=== PATIENT | female | born 1975 | race Caucasian/White ===

== ENCOUNTER 2024-05-25 21:22 | Emergency (ER) | payer BC, SELFPAY ==
[2024-05-25] VITALS (9 sets, daily range): BP systolic 126–167; BP diastolic 83–119; PULSE 105–140; RESP 12–30; O2SAT 95–100
--- NOTE | 2024-05-25 21:30 | RT.EKG_ITS ---
APPROVED REPORT Exam: Resting ECG Reason for Exam: tachycardia Patient Location: E HR:117 bpm ECG Measurements Heart Rate 117 AXIS NE 125 P 82 QRSd 72 QRS 73 QT 332 T 78 QTc 462 Conclusion Sinus tachycardia, rate 117 No interval abnormalities No STEMI No priors available for comparison
[2024-05-25] MEDS: LORazepam 1 MG TAB PO (22:29)
--- NOTE | 2024-05-25 23:05 | ED.GENADUL_ITS ---
<Statement entered by Reji Antonio MD - 05/28/24 11:24> Please see my separate note for details. Discharge Plan Disposition Patient Disposition: Home Condition: Good Discharge Details Clinical Impression: Anxiety, Sinus tachycardia, RLQ abdominal tenderness, Uterine cyst Primary Care Provider: Unknown,Unknown ED Provider: Galo Campbell Home Meds and New Rx's Prescriptions: No Action No Known Home Meds Discharge Instructions Instructions: Appendicitis, Adult (DC) Additional Instructions: At this time you have been evaluated by our surgical colleagues. Currently your symptoms do not appear consistent with a surgical appendicitis. However it is imperative that you monitor your symptoms very closely. Please follow-up with surgery tomorrow which was their request. If you notice any worsening of your symptoms, or any new symptoms such as vomiting, diarrhea, fever, chills, shortness of breath, chest pain, numbness, weakness, or fainting , please return immediately to the emergency department for reevaluation. Please follow up with your primary care provider as soon as possible for reassessment and reevaluation. As always, it was a pleasure participating in your medical care today. Referrals: Renny Everett MD [ [facility] STAFF PHYSICIAN] - Discharge Data Discharge Date/Time-TO BE ENTERED AT DEPARTURE: 05/26/24 19:09 HPI <GREGORY Olmos - Last Filed: 05/26/24 17:16> General Date/Time Provider Initiated Documentation: 05/25/24 21:25 . HPI Narrative: This 48-year-old female presents with history of longstanding alcohol abuse and anxiety presents with report of feeling like she is having a nervous breakdown. Patient states she is supposed to be leaving for a work conference in [facility]. Patient states she supposed to leave tomorrow and has anxiety regarding leaving her home and overwhelming severe anxiety for which she has been hospitalized before in the past. She states that she works during the day predominantly days of the week and at night does consume approximately 1 bottle of wine. She states she is able to go several days without consuming alcohol and denies any history of severe alcohol withdrawal such as seizures. She does state that she has a history of nausea and vomiting and tremulousness when she stops drinking but denies seizures or recent hallucinations. She denies any additional illicit drug use, chance of , chest pain, shortness of breath, abdominal pain. She adamantly denies any suicidal ideation or homicidal ideation. She denies any auditory visual hallucinations. Her last drink was several hours prior to arrival today in the emergency department. She denies any attempts to harm self. She is hoping for inpatient placement for her anxiety as she no longer feels safe at home. Related Data Home Medications ?Medication ?Instructions ?Recorded ?Confirmed Unknown [No Known Home Meds] 05/25/24 05/25/24 Allergies Allergy/AdvReac Type Severity Reaction Status Date / Time coconut Allergy Severe Anaphylaxis Unverified 05/25/24 21:31 General Stated Complaint: OD/Poison NATHAN: 3 Exam <GREGORY Olmos Last Filed: 05/26/24 17:16> Narrative Exam Narrative: Alert, oriented, labile, no respiratory distress, sinus tachycardia, no abdominal tenderness, alert and oriented x 3, no visible signs of trauma, no suicidal ideation, tangential, very anxious Course <GREGORY Olmos Last Filed: 05/26/24 17:16> Vital Signs Vital signs: Vital Signs Pulse 140 H 05/25/24 21:26 Respiratory Rate 30 H 05/25/24 21:26 Blood Pressure 167/119 H 05/25/24 21:26 Pulse Oximetry 100 05/25/24 21:26 Pulse 140 H 05/25/24 21:26 Respiratory Rate 30 H 05/25/24 21:26 Respiratory Effort Normal 05/25/24 21:29 Blood Pressure 167/119 H 05/25/24 21:26 Blood Pressure Position Sitting 05/25/24 21:26 Pulse Oximetry 100 05/25/24 21:26 Oxygen Delivery Method Room Air 05/25/24 21:26 Oxygen Flow Rate 0 05/25/24 21:26 Medical Decision Making <GREGORY Olmos Last Filed: 05/26/24 17:16> 48-year-old female in acute distress, anxious, under the influence of alcohol but no speech slurring fully alert and oriented at time of assessment. Agreeable to having some blood work performed. Patient has not had any healthcare assessments or labs for over 20 years per patient secondary to his severe healthcare anxiety. She is agreeable to lab and line attempt at this time. At this time she is interested in placement she feels like she has lost control of her life and his overwhelmingly anxious to even leave her home. She states that she is interested in becoming sober from alcohol but is unsure as to whether or not she is quite ready at this time. She is more concerned about her anxiety and that is why she is consuming alcohol. She states that she was sober in 2021 after having rehab for all of alcohol. Did discuss that hospitalization for rehabilitation from alcohol is not typically performed in the hospital and that a cane and recovery can assist patient with outpatient resources. Patient desires predominantly mental health evaluation and treatment for severe anxiety. At this time, I will order diagnostic labs for medical screening and patient will need mental health screening assessment/placement at their discretion. She will need prolonged observation for medical clearance in the department at this time for alcohol withdrawal. Patient is placed on CIWA protocol and is not exhibiting any signs of alcohol withdrawal at this time. She is tachycardic but I suspect this is secondary to anxiety. She states she is able to work the entire day before she drinks in the evening. She has had approximately a bottle of wine tonight which is what she typically consumes. Care will be transitioned pending medical clearance and mental health assessment Quality:SDOH Health Related Social Needs: No Data to Display PFSH <GREGORY Olmos - Last Filed: 05/26/24 17:16> All Active Problems (Updated 05/26/24 @ 16:05 by Reji Antonio MD) Uterine cyst (Acute) RLQ abdominal tenderness (Acute) Sinus tachycardia (Acute) Anxiety (Chronic) Social History Smoking risk assessment performed?: No Alcohol Intake: never Drug use: Never Substance use type: does not use Sign Out <GREGORY Olmos - Last Filed: 05/26/24 17:16> Sign Out Data: Sign Out Comment: pending medical clearance, assessment, CIWA Last updated by Palak Grant PA at 05/25/24 23:14 Sign Out Comment: Severe anxiety/agoraphobia. Drinks ~1 bottle of wine/day, no prior ETOH withdrawal. CIWA low overnight. NKHS when awake and sober. Last updated by Dari Rubio MD at 05/26/24 06:56 Sign Out Comment: 48-year-old female pending general surgery consultation at approximately 6 PM in setting of right lower quadrant tenderness and abnormal CT. Please keep patient n.p.o. and avoid further analgesia. Last updated by Reji Antonio MD at 05/26/24 16:06 PAWSS <GREGORY Olmos - Last Filed: 05/26/24 17:16> Have you Been Recently Intoxicated or Drunk Within the Last 30 days?: No Have you Ever Experienced Previous Episodes of Alcohol Withdrawal?: No Have you ever Experienced Withdrawal Seizures?: No Have you ever Experienced Delirium Tremens(DT)s?: No Have you ever undergone Alcohol Rehabilitation Treatment (i.e, inpt ot outpatient treatment programs)?: No Have you ever Experienced Blackouts?: No Have you ever Combined Alcohol with other Downers within the last 90 days?: No Have you ever Combined Alcohol with any other Substance of Abuse during the last 90 days?: No Positive Blood Alcohol level on Presentation? [PCS.BAL]: No Evidence of Increased Autonomic Activity (i.e. HR>120, tremor, sweating, agitation, nausea)?: No Result: 0 <Dari Rubio MD - Last Filed: 05/25/24 23:36> Result: 0 <Reji Antonio MD - Last Filed: 05/27/24 16:18> Result: 0
[2024-05-25 23:18] LABS: Abs Immature Grans 0.03 10^3/uL (0.0-0.06); Absolute Basophil Count 0.11 10^3/uL (0.0-0.2); Absolute Eosinophil Count 0.03 10^3/uL (0.0-0.7); Absolute Lymphocyte Count 2.66 10^3/uL (1.2-3.4); Absolute Monocyte Count 0.67 10^3/uL (0.1-0.8); Absolute Neutrophil Count 5.22 10^3/uL (1.2-6.7); Basophils % 1.3 %; Eosinophils % 0.3 %; HCT 44.2 % (36.0-46.0); HGB 13.8 g/dL (11.2-15.7); Immature Grans % 0.3 %; Lymphocytes % 30.5 %; MCH 23.4 pg (27.0-33.0); MCHC 31.2 % (32.0-36.0); MCV 75 fL (80-95); MPV 8.3 fL (8.0-11.0); Monocytes % 7.7 %; Neutrophils % 59.9 %; Platelet Count 509 10^3/uL (130-400); RBC 5.91 10^6/uL (3.93-5.22); RDW 23.5 % (11.7-14.6); RDW-SD 60.7 fL; WBC 8.72 10^3/uL (4.4-10.8)
[2024-05-25 23:23] LABS: Anisocytosis 1+; Microcytosis 1+
[2024-05-25 23:25] LABS: HCG Qual (Serum) Negative
[2024-05-25 23:32] LABS: ALT 28 U/L (14-59); AST 39 U/L (15-37); Albumin 4.2 g/dL (3.4-5.0); Alkaline Phosphatase 94 U/L (46-116); Anion Gap 21.6 mmol/L (3-11); BUN 4 mg/dL (7-18); Bilirubin, Total 0.38 mg/dL (0.2-1.0); CO2 19.4 mmol/L (21.0-32.0); CREATININE 0.6 mg/dL (0.55-1.02); Chloride 98 mmol/L (98-107); Estimated GFR 109.96 (mL/min/1.73m2); Glucose 83 mg/dL (74-106); Lipase 32 U/L (16-77); Magnesium 1.9 mg/dL (1.8-2.4); Potassium 4.2 mmol/L (3.5-5.1); Sodium 139 mmol/L (136-145); Total Protein 8.6 g/dL (6.4-8.2)
[2024-05-25] MEDS: Nicotine 4 MG GUM CH (23:36)
--- NOTE | 2024-05-25 23:37 | ED.PROG_ITS ---
Date of service: 05/25/24 Time of Service: 23:30 Medical Decision Making This patient was signed out to me. Please see previous notes for H&P and initial eval. In brief, 48yo F with hx of anxiety, agoraphobia, presenting for anxiety and requesting mental health assistance. Drinks one bottle of wine a night, no history of alcohol withdrawal. Given PO ativan prn for anxiety. Signed out pending medical clearance labs and [facility] evaluation. Labs reviewed as below, CBC reassuring with no leukocytosis or anemia, CMP with no actionable abnormalities, TSH high with normal free T4, hcG negative, ETOH 327.6. Will observe in the ED overnight with q2 CIWA while awake, plan for NKHS eval in the morning when awake/sober. Overnight mostly sleeping, scores 2 when awake. Remains tachycardiac mostly 100-120, sinus on the monitor, suspect s/t to ETOH intoxication. Will be signed out to oncoming physician, plan for [facility] eval when sober. Lab Data Lab results reviewed: Yes I reviewed the patient's lab results. Labs: Laboratory Tests Range/Units 05/25/24 05/26/24 23:10 03:45 WBC (4.4-10.8) 10^3/uL 8.72 RBC (3.93-5.22) 10^6/uL 5.91 H Hgb (11.2-15.7) g/dL 13.8 Hct (36.0-46.0) % 44.2 MCV (80-95) fL 75 L MCH (27.0-33.0) pg 23.4 L MCHC (32.0-36.0) % 31.2 L RDW (11.7-14.6) % 23.5 H Plt Count (130-400) 10^3/uL 509 H MPV (8.0-11.0) fL 8.3 Immature Gran % % 0.3 Neutrophils % % 59.9 Lymphocytes % % 30.5 Monocytes % % 7.7 Eosinophils % % 0.3 Basophils % % 1.3 Nucleated RBC % (0.0-0.3) % 0.0 Absolute Neutrophils (1.2-6.7) 10^3/uL 5.22 Absolute Lymphocytes (1.2-3.4) 10^3/uL 2.66 Absolute Monocytes (0.1-0.8) 10^3/uL 0.67 Absolute Eosinophils (0.0-0.7) 10^3/uL 0.03 Absolute Basophils (0.0-0.2) 10^3/uL 0.11 RBC Morphology See Below Anisocytosis 1+ Microcytosis 1+ Sodium (136-145) mmol/L 139 Potassium (3.5-5.1) mmol/L 4.2 Chloride (98-107) mmol/L 98 Carbon Dioxide (21.0-32.0) mmol/L 19.4 L Anion Gap (3-11) mmol/L 21.6 H BUN (7-18) mg/dL 4 L Creatinine (0.55-1.02) mg/dL 0.6 Est GFR (CKD-EPI 2020) (mL/min/1.73m2) 109.96 Glucose (74-106) mg/dL 83 Calcium (8.5-10.1) mg/dL 9.0 Magnesium (1.8-2.4) mg/dL 1.9 Total Bilirubin (0.2-1.0) mg/dL 0.38 AST (15-37) U/L 39 H ALT (14-59) U/L 28 Alkaline Phosphatase (46-116) U/L 94 Total Protein (6.4-8.2) g/dL 8.6 H Albumin (3.4-5.0) g/dL 4.2 Lipase (16-77) U/L 32 TSH (0.36-3.74) uIU/mL 4.65 H Free T4 (0.76-1.46) ng/dL 0.85 Serum HCG, Qual Negative Urine Opiates Screen (Negative) Negative Urine Methadone Screen (Negative) Negative Ur Barbiturates Screen (Negative) Negative Ur Tricyclics Screen (Negative) Negative Ur Amphetamines Screen (Negative) Negative U Benzodiazepines Scrn (Negative) Negative Urine Cocaine Screen (Negative) Negative Ur THC Screen (Negative) Negative Ethyl Alcohol (<10) mg/dL 327.6 H Quality:SDOH Health Related Social Needs: No Data to Display Sign Out Sign Out Data: Sign Out Comment: pending medical clearance, assessment, [facility] Last updated by Palak Grant PA at 05/25/24 23:14 Discharge Plan Discharge Details Chief Complaint: OD/Poison Primary Care Provider: Unknown,Unknown ED Provider: Dari Rubio Home Meds and New Rx's Prescriptions: No Action No Known Home Meds
[2024-05-25 23:42] LABS: TSH (W/Ref FT4) 4.65 uIU/mL (0.36-3.74)
[2024-05-25 23:49] LABS: ETHANOL BLOOD 327.6 mg/dL (<10)
[2024-05-26] VITALS (95 sets, daily range): BP systolic 96–143; BP diastolic 51–99; PULSE 91–146; RESP 10–30; TEMP 36.7; O2SAT 93–100
[2024-05-26 00:05] LABS: FREE T4 0.85 ng/dL (0.76-1.46)
[2024-05-26] MEDS: LORazepam 1 MG TAB PO (04:02)
[2024-05-26 04:18] LABS: *AMPHETAMINES SCREEN URINE Negative (Negative); *BARBITURATES SCREEN URINE Negative (Negative); *BENZODIAZEPINES SCREEN URINE Negative (Negative); Cannabinoids THC Negative (Negative); Cocaine Screen,Urine Negative (Negative); METHADONE URINE SCREEN Negative (Negative); OPIATES URINE SCREEN Negative (Negative)
[2024-05-26 04:23] LABS: Tricyclic Antidepressants Negative (Negative)
--- NOTE | 2024-05-26 08:10 | ED.PROG_ITS ---
Date of service: 05/26/24 Time of Service: 08:10 Medical Decision Making I received signout on this patient pending mental health screening in the setting of increased anxiety for which she seeks placement. She is persistently tachycardic however her CIWA scores have been low. Will treat her with chlordiazepoxide. 9:10 AM charter coach driver met with patient the patient agrees to phone calls. Patient is medically cleared and [facility] human services will be paged. 9:49 AM I met with the patient again. She reported feeling persistently anxious. She reports that she has not been eating and drinking well recently. Given that she is taking p.o. and IV fluid shortage will order her a regular diet. She is pending evaluation with [facility] [place]. Will also treat with hydroxyzine as patient reports being anxious. She does not take routine benzodiazepines. She denies cocaine use. She denies chest pain shortness of breath and as result my suspicion for PE is low. She denies dysuria and frequency. No fevers to suggest pneumonia. No nuchal rigidity to suggest meningitis. My suspicion is low for sepsis I did not order blood cultures nor treat with antibiotics. Patient reports she has not taken much by mouth in the past several days. I turned the patient's monitor away from her in the event that watching her heart rate causes her to have increased anxiety. Will provide 1 L of IV fluids. She is eating breakfast. She is not hypertensive to suggest withdrawal. She has a reassuring free T4 so not suspicious for hyperthyroidism. She did have an elevated anion gap consistent with dehydration. 12:45 PM Improved anion gap normalized bicarbonate. Patient asleep, resting comfortably. Heart rate improving at 111 bpm. Will continue to monitor. 3:15 PM Reassessed patient. She was complaining of abdominal pain. She had a soft abdomen but she had tenderness in the right lower quadrant. I ordered a CT abdomen pelvis. I also ordered 2 mg IV lorazepam as she felt anxious and I ordered 1 additional l of IV fluids. I met with the patient's sister and her da felipe. Daughter lives with the patient reports that for the past several weeks has been drinking a bottle of wine every day and that she gets tremulous when she does not drink. She has tolerated p.o. in the emergency department. She is not hypertensive. IMPRESSION: 1. Borderline distended, thick-walled appendix without yarelis- appendiceal inflammatory changes is indeterminate, may be normal or can represent mild uncomplicated appendicitis. Please correlate for right lower quadrant tenderness and leukocytosis. Advise close clinical and, if warranted, imaging follow-up. 2. Enlarged anteverted uterus with large rounded complex 9 cm centrally cystic mass at anterior margin, probably a degenerating leiomyoma; there is overlap in the imaging appearance of leiomyosarcoma and leiomyoma. Consider MRI for further characterization. Advised joint consult if not already performed for discussion of management and surveillance. 3. No other acute abdominopelvic process or other etiology for right lower quadrant pain I was in touch with Dr. Everett from general surgery who will come in approximately 2-hour just to see the patient. Will sign patient out to Dr. Campbell. I was also in touch with Dr. Shannon Green from gynecology who will help follow-up the uterine cyst. I advised patient of this plan and these findings on imaging. [ ] Quality:SDOH Health Related Social Needs: No Data to Display Sign Out Sign Out Data: Sign Out Comment: pending medical clearance, assessment, CIWA Last updated by Palak Grant PA at 05/25/24 23:14 Sign Out Comment: Severe anxiety/agoraphobia. Drinks ~1 bottle of wine/day, no prior ETOH withdrawal. CIWA low overnight. NKHS when awake and sober. Last updated by Dari Rubio MD at 05/26/24 06:56 Discharge Plan Discharge Details Chief Complaint: OD/Poison Clinical Impression: Anxiety, Sinus tachycardia, RLQ abdominal tenderness, Uterine cyst Primary Care Provider: Unknown,Unknown ED Provider: Reji Antonio Home Meds and New Rx's Prescriptions: No Action No Known Home Meds
[2024-05-26] MEDS: chlordiazePOXIDE 25 MG CAP 50 MG PO (08:15)
[2024-05-26] MEDS: hydrOXYzine HCL 25 MG TAB 50 MG PO (10:04)
[2024-05-26] MEDS: Normal Saline 1,000 ML 1000 ML IV ×2 (10:22→15:13)
[2024-05-26 12:28] LABS: Anion Gap 13.4 mmol/L (3-11); BUN 7 mg/dL (7-18); CO2 23.6 mmol/L (21.0-32.0); CREATININE 0.9 mg/dL (0.55-1.02); Calcium 8.5 mg/dL (8.5-10.1); Chloride 101 mmol/L (98-107); Estimated GFR 78.37 (mL/min/1.73m2); Glucose 94 mg/dL (74-106); Potassium 4.4 mmol/L (3.5-5.1); Sodium 138 mmol/L (136-145)
--- NOTE | 2024-05-26 13:30 | DI.CT_ITS ---
Exam(s) CT ABDOMEN PELVIS W EXAM: CT ABDOMEN PELVIS W CLINICAL HISTORY: RLQ pain. TECHNIQUE: Imaging Protocol: Axial computed tomography images with coronal and sagittal reformatted images were created and reviewed CONTRAST MATERIAL: Intravenous: Omnipaque-350 100cc Oral: None COMPARISON: No exams were available for comparison FINDINGS: VISUALIZED LUNG BASES: No nodules nor pleural effusions evident. ABDOMEN: There is no ascites. LIVER: There is hypodense implying steatosis. Few small sub cm hypo densities in the right hepatic l obe are noted which are too small to characterize. No focal findings in the left hepatic lobe. No d ilated intrahepatic ducts. GALLBLADDER/BILIARY: No obvious gallbladder pathology. CBD is not dilated. PANCREAS: No evidence of pancreatic mass nor dilatation of the pancreatic duct. SPLEEN: Spleen is not enlarged. No obvious intrasplenic lesions. Splenic and portal veins are paten t. ADRENALS: There are no significant adrenal masses. KIDNEYS:No cysts evident. No solid renal masses. No calculi nor hydronephrosis.. ABDOMINAL AORTA: Abdominal aorta is not enlarged. LYMPH NODES:There is no retroperitoneal nor paraaortic adenopathy. ABDOMINAL WALL: No evidence of significant anterior abdominal wall nor inguinal hernia. GI: No evidence of bowel obstruction PELVIS: GI: The appendix appears thickened/slightly prominent in diameter measuring 7-8 mm there is some mild periappendiceal streaking. No calcified appendicolith. LYMPH NODES: There is no intrapelvic nor inguinal adenopathy. REPRODUCTIVE: There is a large mass in the uterus measuring 9 x 7.5 cm. Difficult to determine if th is is endometrium or myometrial fibroid degeneration or leiomyosarcoma. Next step ultrasound. URINARY BLADDER: Partially collapsed. OSSEOUS: No fractures and no significant osseous lesions. IMPRESSION: 1. Findings suspicious for appendicitis. No rupture at this time 2. Large 9 cm centrally hypodense but complex mass in the uterus. Difficult to determine if this is a large degenerating leiomyoma versus leiomyosarcoma. Indeed cannot exclude that this is endometrial pathology. Needs further workup including ultrasound of possible MRI. 3. Surgical consultation recommended First read by [facility]. Discussed by myself with ER physician 05/26/2024 8:35 p.m. RADIATION DOSE DELIVERED: 165.24mGy.cm Total DLP DATA REPOSITORY: All CT scans at this facility are submitted to the National Radiology Data Registry (NRDR) Dose Index Registry (DIR) with the [employer] ([employer]). RADIATION OPTIMIZATION: All CT scans at this facility use at least one of these dose optimization te chniques: automated exposure control; mA and/or kV adjustment per patient size (includes targeted exa ms where dose is matched to clinical indication); or iterative reconstruction.
[2024-05-26] MEDS: Normal Saline - Diluent 50 ML VIAL IJ (13:52)
[2024-05-26] MEDS: Omnipaque 350 MG/ML 100 ML BTL IJ (13:55)
[2024-05-26] MEDS: LORazepam 2 MG/ML VIAL IVP (14:08)
--- NOTE | 2024-05-26 14:44 | PDOC.MHCN_ITS ---
Date of service: 05/26/24 Time of Service: 10:35 PHQ-9 Over the last 2 weeks, how often have you been bothered by any of the following problems? 1. Little interest or pleasure in doing things: nearly every day 2. Feeling down, depressed, or hopeless: more than half the days 3. Trouble falling or staying asleep, or sleeping too much: nearly every day 4. Feeling tired or having little energy: nearly every day 5. Poor appetite or overeating: nearly every day 6. Feeling bad about yourself - or that you are a failure or have let yourself and your family down: more than half the days 7. Trouble concentrating on things, such as reading the newspaper or watching television: more than half the days 8. Moving or speaking so slowly that other people could have noticed? - Or the opposite - being so fidgety or restless that you have been moving around a lot more than usual: not at all 9. Thoughts that you would be better off or of hurting yourself in some way: not at all Total score: 18 If you checked off any problems, how difficult have these problems made it for you to do your work, take care of things at home, or get along with other people?: extremely difficult PHQ-9 Results: Positive Source: Developed by Drs. Paul Grace, Lynn Tripp, Jason Croft and colleagues, with an educational papa from [employer]. Suicide Severity Rate CSSRS Have you wished you were or wished you could go to sleep and not wake up?: No Have you actually had any thoughts of killing yourself?: No CSSRS3 Have you ever done anything, started to do anything or prepared to do anything to end your life?: No CSSRS4 Was this within the past three months?: No Screening Score Total Score: 0 Screening: Negative Mental Health Emergency Note Release [facility] release signed:: Yes Reason for Visit The client is not known to [facility]. Per the report of the client she has never been hospitalized before, however did go to substance abuse treatment in [place] about 4 years ago. The client presented to [facility] last evening under the influence of alcohol and presenting with significant anxiety. This morning the client is medically cleared for an assessment. This quality analyst/technical writer assesses the client in person at [facility] ED. In the last 2 weeks has the pt presented for ES prior to today?: No Client Information Client is: New Well Housed: Yes Non Suicidal Self Injury Current: No History: No Safety Risk/Harm to Self or Others Current Ideation to Harm Self or Others: No Risk: Does risk to harm exist?: No Risk: N/A Duty to warn indicated: No Asssessment/Mental Status Appearance: Disheveled Attitude: Cooperative Behavior: Unremarkable Speech: Soft Affect: Flat and Cogruent with mood Mood: Stressed, Depressed and Anxious Thought process: Unremarkable Hallucinations: No Delusions: No Attention: Unremarkable Perception: Not impaired Orientation: Fully orientated Memory: Intact Insight: Fair Judgement: Fair Neurovegetative Symptoms Sleep: Decrease (The client reports at times she is able to sleep about 8 ours and other times only about 4-5 hours.) Appetitie: Disordered (The client reports prior to coming to the hospital she had not eaten in 3+ days.) Interests: Decrease Energy: Decrease Libido: Not applicable Substance Use: ETOH dependence (The client reports that she drinks on average at least a bottle of wine daily if not a small bottle and a big bottle daily. ) Do you use nicotine?: Yes Have you used substances in the last 7 days?: yes, The client reports that she drinks on average at least a bottle of wine daily if not a small bottle and a big bottle daily. Additional Issues: Assaultive/Threatening Behavior: No Medical Concerns: No Client engaged in active self harm w/weapon: No Threatening to run away: No Child reported abuse/neglect: No Voluntarily presenting for services: Yes Domestic violence is a concern: No Extreme Psychosis or extreme behavior is present: No Impression The client is a 48 y/o single female that resides in [place], [place]. 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 The client answers all screening tools. This quality analyst/technical writer is not yet CAMS trained so that tool could not be utilized during this assessment. The client is sitting up in hospital bed dressed in a hospital gown when this quality analyst/technical writer arrives in person at [facility]. The client reports to this quality analyst/technical writer that she came to the ED last evening under the influence of alcohol and reported to hospital staff that she has been under a lo t of anxiety. The client reports that she took on a new job and had her adult daughter move back in with her which has been contributing to her increase in anxiety. The client reports that she drinks alcohol daily, but denies any other substance use. The client denies SI/HI/NSSI as well as intent and plan. The client reports that she is not currently connected with any professional supports, however is interested in a therapy referral as well as case management. Resources Reosurces reviewed and given:: [phone], [facility] and Other ([employer] [facility]) Plan/Disposition Recommended Disposition: [facility] Services (Referral to therapy and case management) [facility] Services: Therapy. Plan: Pro-active safety plan in place. The client is provided with [facility] 24 hour phone number, [phone] and [facility] phone number. The client is also interested in therapy and case management referral which this quality analyst/technical writer will complete. Person reported agreement to plan: Yes Reports/communication Outcome discussed with: ED/Personnel (Verbal passover given to ED provider Dr. Antonio) Final Disposition/Discharge Transportation Checklist completed and faxed: No
[2024-05-26] MEDS: Ketorolac 15 MG/ML VIAL IVP (15:13)
--- NOTE | 2024-05-26 15:48 | DI.VRAD_ITS ---
Addendum created by Mary Gonzalez DO on 05/26/2024 4:19:02 PM EDT: Few punctate nonobstructing right renal calculi. Initial report created on 05/26/2024 3:47:56 PM EDT: PROCEDURE INFORMATION: Exam: CT Abdomen And Pelvis With Contrast Exam date and time: 05/26/2024 1:50 PM Age: 48 years old Clinical indication: Other: Rlq pain TECHNIQUE: Imaging protocol: Computed tomography of the abdomen and pelvis with contrast. Contrast material: OMNIPAQUE 350; Contrast volume: 85 ml; Contrast route: INTRAVENOUS (IV); COMPARISON: No relevant prior studies available. FINDINGS: Lungs: No concerning finding. Liver: Decreased hepatic attenuation, consistent with steatosis. Subcentimeter hepatic hypodensity is too small to characterize. Gallbladder and biliary ducts: The gallbladder is unremarkable. No biliary ductal dilatation. Pancreas: The pancreas is unremarkable. Spleen: The spleen is unremarkable. Adrenal glands: The adrenal glands are unremarkable. Kidneys and ureters: No hydronephrosis or nephrolithiasis. Stomach and bowel: See Appendix finding. Appendix: Borderline distended, thick-walled appendix, measures 7 mm, series 10, image 168, series 6 image 24-26 and series 4 image 12-16, without yarelis-appendiceal inflammatory changes. No appendicolith. No pericecal inflammatory change. Normal terminal ileum. Intraperitoneal space: Unremarkable. No free air. No significant fluid collection. Vasculature: Normal caliber abdominal aorta and proximal common iliac arteries with calcified atherosclerosis. Please correlate for right lower quadrant tenderness and leukocytosis. Advise close clinical and, if warranted, imaging follow-up. Lymph nodes: Unremarkable. No enlarged lymph nodes. Urinary bladder: Unremarkable as visualized. Reproductive: Enlarged anteverted uterus with large rounded complex 9 cm centrally cystic mass at anterior margin, probably a degenerating leiomyoma with a subserosal component; this demonstrates enhancing soft tissue component centrally. Additional smaller myomas are likely. Bones/joints: Unremarkable. No acute fracture. Soft tissues: Unremarkable. IMPRESSION: 1. Borderline distended, thick-walled appendix without yarelis-appendiceal inflammatory changes is indeterminate, may be normal or can represent mild uncomplicated appendicitis. Please correlate for right lower quadrant tenderness and leukocytosis. Advise close clinical and, if warranted, imaging follow-up. 2. Enlarged anteverted uterus with large rounded complex 9 cm centrally cystic mass at anterior margin, probably a degenerating leiomyoma; there is overlap in the imaging appearance of leiomyosarcoma and leiomyoma. Consider MRI for further characterization. Advised joint consult if not already performed for discussion of management and surveillance. 3. No other acute abdominopelvic process or other etiology for right lower quadrant pain Dictated and Authenticated by: Mary Gonzalez MD. Ordering:DARELL Mendoza MD
--- NOTE | 2024-05-26 18:09 | W.SURGCON ---
Date of service: 05/26/24 Time of Service: 18:09 Assessment and Plan Assessment and plan (1) RLQ abdominal tenderness: Status: Acute Assessment and plan: 48-year-old woman who presented quite intoxicated to the emergency department and developed abdominal pain and had a CT scan which questioned possible early appendicitis. She is hemodynamically stable. She has a benign abdominal exam. Nothing about her clinical picture is concerning for appendicitis. The pain she subjectively describes is high in her abdomen and nowhere near the appendix. She has no right lower quadrant tenderness subjectively or on examination. I reviewed her CT scan in careful detail. There is no free air. There is no obvious free fluid. I do not see any air in the lumen of the appendix but I also do not appreciate any inflammation around it. Her subjective abdominal pain is more likely something like acute gastritis because of how much alcohol she is taking. The CT read recommends correlation of the findings with the clinical picture. At this time I have no concern for acute appendicitis. I could certainly be wrong and this could be early appendicitis that is coincidentally developing at the same time as her needing to detox, but that is pretty doubtful. Overall recommendations: She can be discharged home. She should receive no pain medication and she should receive no antibiotic therapy. If it is appendicitis, her pain will worsen and will localized to the right lower quadrant where her appendix is visualized on the CT scan. If this happens, she should return to the emergency department. I discussed all of this with the attending ER physician History of Present Illness Narrative: The patient is a 48-year-old woman who presented to the emergency room almost 24 hours prior to this consultation. She tells me that she came in because of anxiety and having a panic attack. Her alcohol level was 327 when she came to the emergency department. At the time of the bedside consultation, she was asleep and I had to wake her up. At some point during the ER visit she developed abdominal pain I asked her if she has had this pain before and she says sometimes. She describes the pain as there and that sometimes it comes and goes. She also describes the pain as high in her abdomen and points above her bellybutton. I asked her how long this has been going on and she says quite a while. She agrees that it is not something new today although she does not always have the discomfort. She has never had intra-abdominal surgery. PFSH All Active Problems (Updated 10/27/24 @ 16:05 by Reji Antonio MD) Uterine cyst (Acute) RLQ abdominal tenderness (Acute) Sinus tachycardia (Acute) Anxiety (Chronic) Social History Smoking risk assessment performed?: No Alcohol Intake: never Drug use: Never Substance use type: does not use Exam Narrative Exam Narrative: Gen: Non-toxic, in no distress or discomfort, sleepy. I had to wake her up at the bedside. Neuro: Alert and oriented x3 Psych: Her mood and affect seem reasonable, she seems somewhat nervous and jittery but otherwise seems to have reasonable insight and understanding Chest: Non-labored breathing, no wheezing, no visible shortness of breath. Heart: Regular Abdomen: I asked her to put her finger where her pain is and she places it in the epigastrium, 3-4 cm above her umbilicus. Her abdomen is soft, it is not distended and there is no significant tenderness. There is mild tenderness to deep palpation in all 4 quadrants. There is no Rovsing sign. There are no peritoneal signs anywhere. Certainly McBurney's point is nontender at all. Results Last Vital Signs Temp 98.1 F 05/26/24 08:10 Pulse 91 H 05/26/24 17:01 Resp 15 05/26/24 17:01 BP 102/62 05/26/24 17:01 Pulse Ox 94 05/26/24 14:50 Labs 05/25/24 23:10 05/26/24 11:59 Labs: Laboratory Results - last 24 hr 05/25/24 05/26/24 05/26/24 23:10 03:45 11:59 WBC 8.72 RBC 5.91 H Hgb 13.8 Hct 44.2 MCV 75 L MCH 23.4 L MCHC 31.2 L RDW 23.5 H Plt Count 509 H MPV 8.3 Immature Gran % 0.3 Neutrophils % 59.9 Lymphocytes % 30.5 Monocytes % 7.7 Eosinophils % 0.3 Basophils % 1.3 Nucleated RBC % 0.0 Absolute Neutrophils 5.22 Absolute Lymphocytes 2.66 Absolute Monocytes 0.67 Absolute Eosinophils 0.03 Absolute Basophils 0.11 RBC Morphology See Below Anisocytosis 1+ Microcytosis 1+ Sodium 139 138 Potassium 4.2 4.4 Chloride 98 101 Carbon Dioxide 19.4 L 23.6 Anion Gap 21.6 H 13.4 H BUN 4 L 7 Creatinine 0.6 0.9 Est GFR (CKD-EPI 2020) 109.96 78.37 Glucose 83 94 Calcium 9.0 8.5 Magnesium 1.9 Total Bilirubin 0.38 AST 39 H ALT 28 Alkaline Phosphatase 94 Total Protein 8.6 H Albumin 4.2 Lipase 32 TSH 4.65 H Free T4 0.85 Serum HCG, Qual Negative Urine Opiates Screen Negative Urine Methadone Screen Negative Ur Barbiturates Screen Negative Ur Tricyclics Screen Negative Ur Amphetamines Screen Negative U Benzodiazepines Scrn Negative Urine Cocaine Screen Negative Ur THC Screen Negative Ethyl Alcohol 327.6 H
--- NOTE | 2024-05-26 18:53 | W.EDPROG ---
Date of service: 05/26/24 Time of Service: 18:53 Medical Decision Making Patient was signed out to me by Scooter Herman. Please refer to his HPI, physical exam, assessment and plan. At time of signout we are awaiting evaluation by surgery. Patient had initially come in for alcohol intoxication, she was rehydrated, reevaluated, and noted to have some abdominal pain and persistent tachycardia. Tachycardia has since resolved, laboratory workup has improved after rehydration. CT scan was ordered and showed evidence of questionable early appendicitis. She was evaluated by our surgical colleague Dr. Everett, and on his evaluation he does not see any indication for emergent surgical intervention. He recommends close outpatient follow-up. Repeat exam at this time shows a stable appearing female, no abdominal distention or significant tenderness. Symptoms inconsistent with acute surgical appendicitis at this time. Patient will follow-up with surgery on an outpatient basis tomorrow per Dr. Everett's request. Discussed red flags for which to return. Family was at bedside. I have extensively reviewed the treatment plan and discharge instructions with the patient and their family. I have addressed all patient concerns at this time. The patient and family was made aware of what symptoms to monitor for that would warrant a return to the emergency department. Discussed the plan with the patient and family, they demonstrate verbal understanding and agreement with our assessment and plan at this time. The documentation in this chart was dictated using [employer] dictation software. Please excuse any dictation errors. Quality:SDOH Health Related Social Needs: No Data to Display Sign Out Sign Out Data: Sign Out Comment: pending medical clearance, assessment, CIWA Last updated by Palak Grant PA at 05/25/24 23:14 Sign Out Comment: Severe anxiety/agoraphobia. Drinks ~1 bottle of wine/day, no prior ETOH withdrawal. CIWA low overnight. [facility] when awake and sober. Last updated by Dari Rubio MD at 05/26/24 06:56 Sign Out Comment: 48-year-old female pending general surgery consultation at approximately 6 PM in setting of right lower quadrant tenderness and abnormal CT. Please keep patient n.p.o. and avoid further analgesia. Last updated by Reji Antonio MD at 05/26/24 16:06 Discharge Plan Disposition Patient Disposition: Home Condition: Good Discharge Details Clinical Impression: Anxiety, Sinus tachycardia, RLQ abdominal tenderness, Uterine cyst Primary Care Provider: Unknown,Unknown ED Provider: Galo Campbell Home Meds and New Rx's Prescriptions: No Action No Known Home Meds Discharge Instructions Instructions: Appendicitis, Adult (DC) Additional Instructions: At this time you have been evaluated by our surgical colleagues. Currently your symptoms do not appear consistent with a surgical appendicitis. However it is imperative that you monitor your symptoms very closely. Please follow-up with surgery tomorrow which was their request. If you notice any worsening of your symptoms, or any new symptoms such as vomiting, diarrhea, fever, chills, shortness of breath, chest pain, numbness, weakness, or fainting , please return immediately to the emergency department for reevaluation. Please follow up with your primary care provider as soon as possible for reassessment and reevaluation. As always, it was a pleasure participating in your medical care today. Referrals: Renny Everett MD [ [facility] STAFF PHYSICIAN] -
--- NOTE | 2024-05-26 21:52 | NUR.NOTE ---
Nursing Note: Accessed chart to write referral for surgery
== END 2024-05-26 19:09 | disposition home or self-care (01) ==
PROVIDERS: Emergency Medicine; Physician Assistant; Emergency Provider Student in an Organized Health Care Education/Training Program
DX: R10.813 Right lower quadrant abdominal tenderness (principal); F41.9 Anxiety disorder, unspecified; R00.0 Tachycardia, unspecified; F40.00 Agoraphobia, unspecified; N85.8 Other specified noninflammatory disorders of uterus; F10.120 Alcohol abuse with intoxication, uncomplicated; Y90.8 Blood alcohol level of 240 mg/100 ml or more
CPT/HCPCS: 00123; 36415; 80048; 80053; 80307; 83690; 93005; 96127; 96361; 96374; 96375; 99285; 74177; 80320; 83735; 84439; 84443; 84703; 85025; 93010; J1885; J2060; J3490

== ENCOUNTER 2024-11-22 22:53 | Outpatient (REF) | payer BC, SELFPAY | END 2024-11-22 22:54 | disposition home or self-care (01) | LOC: LBN 22:53 | PROVIDERS: Visit Provider Physician Assistant Medical | DX: J02.9 Acute pharyngitis, unspecified (principal) | CPT/HCPCS: 87070 ==

== ENCOUNTER 2025-01-10 00:16 | Outpatient (CLI) | payer BC, SELFPAY ==
--- NOTE | 2025-01-10 | DI.MAMMO_ITS ---
Exam(s) MAMMO SCREENING EXAM: MAMMO SCREENING CLINICAL HISTORY: SCREENING, Z12.31. TECHNIQUE: Bilateral full field digital CC and MLO mammographic images were obtained with 3D tomosynthesis and utilizing computer aided detection (CAD). COMPARISON: None. This is a baseline mammogram on this 49-year-old FINDINGS: Fibroglandular tissue pattern is moderately dense, this somewhat decreasing the sensitivity of the mammogram for finding hidden underlying lesions. No CAD designations. No significant focal left breast findings. In the right breast there is a nodular density measuring 6 x 4 mm located 2.5 cm in from the nipple on the CC view. It may correspond to a nodule seen superiorly on the MLO view which is similar size and located 4.5 cm above the nipple level on the MLO view. There are no malignant-appearing microcalcification groups in this region or elsewhere in either breast There is no significant architectural distortion nor skin thickening-retraction. IMPRESSION: Dense bilateral fibroglandular tissue. No radiographic evidence of malignancy in left breast. Right breast nodule(s) as described above. Spot compression views and ultrasound recommended. BI-RADS Category 0 - Incomplete: Need additional imaging evaluation Breast Density - Category C - The breast are heterogeneously dense, which may obscure small masses. Breast density Category C or D implies that the patient has dense breast tissue. Dense breast tissue can make it harder to find cancer on a mammogram. Dense breast tissue is also associated with an increased risk of breast cancer. This information about the result of the mammogram report was provided to the patient to raise their awareness. Use this report when you speak with the patient about their risks for breast cancer, which includes their family history. At that time, you may recommend additional screening tests (Ultrasound or MRI) as these tests may add significant information. A negative radiographic report should not delay biopsy if a dominant or clinically suspicious mass is present. Up to ten percent of cancers are not identified on mammography. A negative report may reinforce clinical impression. Adenosis and dense breasts may obscure an underlying neoplasm. False positive reports average 6 to 10%. Patient will receive a letter notifying them of these results.
== END 2025-01-10 00:36 ==
LOC: DI 00:16
PROVIDERS: PCP Family Medicine; Visit Provider Family Medicine
DX: Z12.31 Encounter for screening mammogram for malignant neoplasm of breast (principal); R92.333 Mammographic heterogeneous density, bilateral breasts
CPT/HCPCS: 77063; 77067

== ENCOUNTER 2025-01-17 00:28 | Outpatient (CLI) | payer BC, SELFPAY ==
--- NOTE | 2025-01-17 | DI.US_ITS ---
Exam(s) MG MAMMO SCREEN CALL BACK UNI US BREAST RT LIMITED EXAM: MG MAMMO SCREEN CALL BACK UNI CLINICAL HISTORY: F/U MAMMO, RT BREAST NODULAR DENSITY,R92.8. TECHNIQUE: Craniocaudal and mediolateral oblique spot compression digital Mammography views of the rightbreast with Tomosynthesis and right breast ultrasound. COMPARISON: CT CT ABDOMEN PELVIS W from 05/26/2024 MG MG MAMMO SCREENING from 01/10/2025 US US BREAST RT LIMITED from 01/17/2025 FINDINGS: Mammography/Tomosynthesis: Masses: Spot view of the upper right breast shows an elongated circumscribed nodule. No abnormality persists on the CC view. Architectural Distortion: None seen. Microcalcifictions: No suspicious pleomorphic-type are seen. Skin Thickening/Nipple Retraction: None. Right breast US: Echotexture: Normal appearance of the glandular tissue. Shadowing: No suspicious foci. Cyst: None 3 millimeter cyst noted at the 11 o'clock position 5 cm from the nipple. Additional 3 millimeter cyst at the 9 o'clock position. Solid lesions: In the superior right breast, 4 cm from the nipple, there is an ovoid lesion is central fatty hilum, consistent with a an intramammary lymph node which measures 10 by 3 millimeters. No suspicious masses are seen. Ductal dilation: None. IMPRESSION: 1. No evidence of malignancy is noted. 2. Unless there is more urgent need, follow-up screening mammography is recommended, as per [place] [employer] guidelines. 3. The findings were discussed with the patient on the date of the examination. BI-RADS Category 2 - Benign Findings Breast Density - Category C - The breast are heterogeneously dense, which may obscure small masses. Breast density Category C or D implies that the patient has dense breast tissue. Dense breast tissue can make it harder to find cancer on a mammogram. Dense breast tissue is also associated with an increased risk of breast cancer. This information about the result of the mammogram report was provided to the patient to raise their awareness. Use this report when you speak with the patient about their risks for breast cancer, which includes their family history. At that time, you may recommend additional screening tests (Ultrasound or MRI) as these tests may add significant information. A negative radiographic report should not delay biopsy if a dominant or clinically suspicious mass is present. Up to ten percent of cancers are not identified on mammography. A negative report may reinforce clinical impression. Adenosis and dense breasts may obscure an underlying neoplasm. False positive reports average 6 to 10%. Patient will receive a letter notifying them of these results.
== END 2025-01-17 00:48 ==
LOC: DI 00:29
PROVIDERS: PCP Family Medicine; Visit Provider Family Medicine
DX: Z12.31 Encounter for screening mammogram for malignant neoplasm of breast (principal); R92.333 Mammographic heterogeneous density, bilateral breasts; D24.1 Benign neoplasm of right breast
CPT/HCPCS: 76642; 77063; 77067